=== PATIENT | female | born 1990 | race Caucasian/White ===

== ENCOUNTER 2017-09-23 15:23 | Emergency (ER) | payer SELFPAY ==
--- NOTE | 2017-09-23 16:19 | ED ---
Lower Extremity - HPI Summary HPI Summary: This is zulema Arita documenting for attending Kike Collins MD. This patient is a 41 year old F presenting to [facility] with a chief complaint of swollen bilat extremities since 2 days ago after a 14 hour flight from [facility]. The symptoms have since spontaneously alleviated. She reports tightness during when her ankle was swollen, and she denies pain, SOB, and cough. The patient is on Mirena IED for control. She has no Hx of blood clots but her legs swell even after sitting for just 3 hours. This symptom has present since when she was 21, before she started traveling. Her LNMP was 2 years ago. She does not take any medications. The patient reports having GI issues. - History of Current Complaint Chief Complaint: EDGeneral Stated Complaint: SWELLING IN BOTH LOWER EXTREMITIES Time Seen by Provider: 09/23/17 16:04 Hx Obtained From: Patient Onset of Pain: Days - 1 day ago Onset/Duration: Resolved - spontaneously resolved Severity Initially: Mild Severity Currently: None Pain Intensity: 0 Pain Scale Used: 0-10 Numeric Timing: Lasting Hours - Allergies/Home Medications Allergies/Adverse Reactions: Allergies Allergy/AdvReac Type Severity Reaction Status Date / Time No Known Allergies Allergy Verified 09/23/17 15:33 Home Medications: Home Medications NK [No Home Medications Reported] 09/23/17 [History Confirmed 09/23/17] PMH/Surg Hx/FS Hx/Imm Hx Previously Healthy: No - chronic fatigue History: Denies: Hx Acute Renal Failure Sensory History: Denies: Hx Deafness Infectious Disease History: No Infectious Disease History: Reports: Traveled Outside the [place] in Last 30 Days - [facility] - Family History Known Family History: Negative: Renal Disease - Social History Occupation: Employed Full-time - acting instructor in [facility] Smoking Status (MU): Former Smoker - used to smoke cigarettes Review of Systems Negative: Fever Positive: Other - swelling in L bilat extremities 2 days ago All Other Systems Reviewed And Are Negative: Yes Physical Exam - Summary Physical Exam Summary: Appearance: Well appearing, no pain distress Skin: warm, dry, reflects adequate perfusion. No swelling, no redness, no tenderness. Head/face: normal Eyes: EOMI, ERIKA ENT: normal Neck: supple, non-tender Respiratory: CTA, breath sounds present Cardiovascular: RRR, pulses symmetrical Abdomen: non-tender, soft Bowel Sounds: present Musculoskeletal: normal, strength/ROM intact Neuro: normal, sensory motor intact, A&Ox3 Triage Information Reviewed: Yes Vital Signs On Initial Exam: Initial Vitals Temp Pulse Resp BP Pulse Ox 97.2 F 82 16 116/77 97 09/23/17 15:29 09/23/17 15:29 09/23/17 15:29 09/23/17 15:29 09/23/17 15:29 Vital Signs Reviewed: Yes Diagnostics - Vital Signs Vital Signs Temp Pulse Resp BP Pulse Ox 09/23/17 15:29 97.2 F 82 16 116/77 97 - Laboratory Lab Statement: Any lab studies that have been ordered have been reviewed, and results considered in the medical decision making process. Lower Extremity Course/Dx - Course Course Of Treatment: Patient presents with complaint of bilateral ankle swelling after flying an airplane from [facility]. She states that she commonly has swelling in her feet but it was somewhat increased. It has since resolved. She has no calf pain, redness or tenderness. She has not seen a primary care doctor in some time would like to do so. She understands that she needs routine lab work done. There is no indication for imaging given the resolution of her symptoms and the bilateral nature. She will follow up closely with the [facility] and was also given referral for primary care should she choose to remain in the area. - Diagnoses Provider Diagnoses: Peripheral edema, Venous insufficiency Discharge - Sign-Out/Discharge Documenting (check all that apply): Patient Departure - D/C - Discharge Plan Condition: Improved Disposition: HOME Patient Education Materials: Venous Insufficiency (DC) Referrals: [facility] [Outside] [facility] [Outside] Additional Instructions: Call the [facility] in the morning for an appointment. They may suggest routine blood work such as a CBC, BMP, thyroid function tests. Return if worse, new symptoms or other concerns as discussed. Low-salt diet. Wear compression garment on her legs as discussed. - Billing Disposition and Condition Condition: IMPROVED Disposition: Home
[2017-09-23 16:40] VITALS: BP 112/75
== END 2017-09-23 16:39 | disposition home or self-care (01) ==
LOC: ED 15:23
DX: I87.2 Venous insufficiency (chronic) (peripheral) (principal); R60.0 Localized edema; Z87.891 Personal history of nicotine dependence
CPT/HCPCS: 99282